=== PATIENT | female | born 1995 | race Two or more races ===

== ENCOUNTER 2019-09-23 08:33 | Outpatient (CLI) | payer OTHER ==
[~2019-09-23 08:33] MED LIST: ZYRTEC10 MG PO
== END 2019-09-23 08:39 | disposition home or self-care (01) ==
LOC: SONOGRAMA 08:33 → MAMO-SONO 08:45
DX: R10.2 Pelvic and perineal pain (principal)

== ENCOUNTER 2019-11-25 13:25 | Outpatient (CLI) | payer OTHER | END 2019-11-25 13:49 | disposition home or self-care (01) | LOC: SONOGRAMA 13:25 | PROVIDERS: ATTEND Internal Medicine Endocrinology, Diabetes & Metabolism | DX: E04.8 Other specified nontoxic goiter (principal); E06.3 Autoimmune thyroiditis ==

== ENCOUNTER 2020-05-22 11:46 | Outpatient (CLI) | payer OTHER | END 2020-05-22 11:55 | disposition home or self-care (01) | LOC: RAD 11:46 | PROVIDERS: ATTEND General Practice | DX: R05 Cough (principal) ==